=== PATIENT | male | born 1950 | race Caucasian/White ===

== ENCOUNTER → 2019-05-25 | Outpatient (CLI) | payer OTHER ==
--- NOTE | 2019-05-25 10:30 | NUR ---
MBSS COMPLETED. TRANSIENT PENETRATION WITH THIN LIQUIDS VIA LARGE CUP SIP. RECOMMEND REGULAR TEXTURE, THIN LIQUIDS VIA SMALL CUP SIP, PILLS WHOLE WITH LIQUIDS. RECOMMENDATIONS: 1. GI CONSULT: PLEASE CONSIDER ESOPHAGRAM 2. 6 SMALL MEALS Pt WAS ACCOMPANIED BY . ALL QUESTIONS ANSWERED AND THEY WERE PROVIDED WITH RECOMMENDATIONS VIA WRITTEN MODALITY. Addendum: 05/25/19 at 1341 by MANUEL ARGUETA, [facility] Amended: Links added.
== END | disposition home or self-care (01) ==
LOC: RAH 10:12
PROVIDERS: ATTEND Internal Medicine
DX: R13.10 Dysphagia, unspecified (principal)
CPT/HCPCS: 74230; 92611

== ENCOUNTER → 2019-06-09 | Outpatient (CLI) | payer OTHER | END | disposition home or self-care (01) | LOC: RAH 10:31 | PROVIDERS: ATTEND Internal Medicine | DX: K21.9 Gastro-esophageal reflux disease without esophagitis (principal); R13.10 Dysphagia, unspecified | CPT/HCPCS: 74220 ==